=== PATIENT | female | born 1960 | race Caucasian/White ===

== ENCOUNTER 2017-09-09 08:42 | Outpatient (CLI) | payer OTHER ==
--- NOTE | 2017-09-09 09:19 | RAD ---
RIGHT HAND THREE VIEWS: History: 57-year-old female with history of splinters in hand following an injury. FINDINGS: Three views of the right hand demonstrate a small approximately 0.1 cm diameter irregular minimally o paque opacity in the superficial soft tissues of the ulnar side of the right hand at the level of the mid fifth metacarpal. This certainly could represent a small foreign body. No fracture or dislocatio n. No metallic density foreign body. IMPRESSION: Possible small superficial soft tissue foreign body in the ulnar site of soft tissues at the level of the fifth metatarsal. POS: C
== END 2017-09-09 08:43 | disposition home or self-care (01) ==
LOC: RAD-FRANK 08:42
PROVIDERS: ATTEND Nurse Practitioner Family
DX: M79.5 Residual foreign body in soft tissue (principal)

== ENCOUNTER 2020-07-28 21:57 | Inpatient (IN) | payer MEDICAID, SELFPAY ==
[2020-07-28] MEDS ORDERED: Dexamethasone 10 MG/ML VIAL ONE (22:35)
--- NOTE | 2020-07-28 22:40 | RAD ---
RADIOGRAPH CHEST 1 VIEW: DATE: 07/28/2020 TIME: 10:32 PM HISTORY: 60-year-old female with hypoxia COMPARISON: 05/26/2006 FINDINGS: New finding of numerous small patchy infiltrates throughout the bilateral lungs, except for relative sparing of the apices. No cardiomegaly. No pneumothorax. Lateral costophrenic angles are sharp. IMPRESSION: Moderate degree of COVID 19 pneumonia
[2020-07-28 22:52] LABS: #Lymphocytes 1.1 thou/uL (1.20-3.40); #Monocytes 1.1 thou/uL (0.11-0.59); #Neutrophils 6.6 thou/uL (1.40-6.50); %Basophils 0.1 % (0.0-1.0); %Eosinophils 0.1 % (0.0-10.0); %Lymphocytes 12.3 % (21.0-51.0); %Monocytes 12.5 % (0.0-10.0); %Neutrophils 74.9 % (42.0-75.0); Hemoglobin 12.2 g/dL (12.0-16.0); Mean Corpuscular HGB CONC 33.1 g/dL (32.0-36.0); Mean Corpuscular Volume 90.7 fL (78.0-98.0); Mean Platelet Volume 7.5 fL (7.4-10.4); Platelet Count 227 thou/uL (130-400); RBC Distribution Width 11.8 % (11.5-14.5); Red Blood Cell (RBC) Count 4.07 mill/uL (4.20-5.40); White Blood Cell (WBC) Count 8.8 thou/uL (4.8-10.8)
[2020-07-28 23:13] LABS: ALT (SGPT) 20 U/L (8-55); AST (SGOT) 28 U/L (5-34); Albumin 3.4 g/dL (3.4-4.8); Alkaline Phosphatase 81 U/L (40-110); Anion Gap 16 mmol/L (10-20); BUN (Urea Nitrogen) 16 mg/dL (9.8-20.1); Bilirubin, Total 0.4 mg/dL (0.2-1.2); Calc. Creatinine Clearance 0 mL/min (70-130); Calcium 8.1 mg/dL (7.8-10.44); Carbon Dioxide 19 mmol/L (23-31); Chloride 105 mmol/L (98-107); Globulin 3.2 g/dL (2.4-3.5); Glucose 105 mg/dL (80-115); Potassium 3.9 mmol/L (3.5-5.1); Protein, Total 6.6 g/dL (5.8-8.1); Sodium 136 mmol/L (136-145)
[2020-07-28 23:44] LABS: SARS-CoV-2 NAA Rapid Test DETECTED (NotDetected)
--- NOTE | 2020-07-28 23:45 | PDOC.FPRHP ---
- History of Present Illness Chief Complaint: SOB History of Present Illness: Patient presents for evaluation of worsening shortness of breath that she said began over this past week. She states that she tested positive for COVID on Friday, however has had sxs for the past 2-3 weeks of feeling unwell. She states that she was been gradually getting worse every day this week and finds it difficult to do things like walk from her bedroom to her bathroom. Endorse productive cough, but no hemoptysis. States that she has been having diarrhea as well. Denies CP, fever/chills. Does not use oxygen at home. ED Course: dexamethasone 6mg COVID +, Flu - CXR: COVID PNA - Allergies/Adverse Reactions Allergies Allergy/AdvReac Type Severity Reaction Status Date / Time hydrocodone Allergy Unknown Verified 07/29/20 04:36 Penicillins Allergy Verified 07/29/20 03:58 - Home Medications Medication Instructions Recorded Confirmed Type Amlodipine Besylate [amLODIPine 5 mg PO DAILY 07/29/20 07/29/20 History Besylate] Cholecalciferol (Vitamin D3) 4,000 unit PO DAILY 07/29/20 07/29/20 History [Vitamin D3] Cyanocobalamin/Folic Acid [Vitamin 1 tablet PO DAILY 07/29/20 07/29/20 History B12/Folic Acid] Escitalopram Oxalate [Lexapro] 10 mg PO DAILY 07/29/20 07/29/20 History Lactobacillus Rhamnosus R0011 1 cap PO DAILY 07/29/20 07/29/20 History [Probiotic Digestive Care] Losartan Potassium 25 mg PO DAILY 07/29/20 07/29/20 History Multivit-Min/Iron/Folic/Lutein 1 tab PO DAILY 07/29/20 07/29/20 History [Centrum Silver Women] Ondansetron [Zofran ODT] 1 tab PO TID PRN 07/29/20 07/29/20 History Pravastatin Sodium 20 mg PO HS 07/29/20 07/29/20 History Promethazine HCl [Promethazine HCl 5 ml PO Q6HR 07/29/20 07/29/20 History Oral Solution] Zinc 1 tab PO DAILY 07/29/20 07/29/20 History traZODone HCl [Trazodone HCl] 100 mg PO HS 07/29/20 07/29/20 History - History PMHx: -HTN -HLD -reportedly states COPD -Depression/Anxiety PSHx: -none FHx: -dad: prostate cancer Social: -no TAD - Review of Systems General: reports: fatigue Eyes: denies: vision changes ENT: reports: nasal congestion Respiratory: reports: cough, congestion, shortness of breath Cardiovascular: denies: chest pain Gastrointestinal: denies: nausea, vomiting, diarrhea Genitourinary: denies: dysuria, polyuria Skin: denies: rashes, lesions, itching Musculoskeletal: denies: pain, tenderness, stiffness, swelling Neurological: reports: weakness. denies: numbness, syncope - Vital signs BP: 101/62, Pulse: 75, Resp: 20, Temp: 98.9 (Oral), Pain: 4, O2 sat: 96 on (3L Oxygen), Time: 07/28/2020 23:34. - Physical Exam Constitutional: NAD, awake, alert and oriented HEENT: normocephalic and atraumatic, grossly normal vision, grossly normal hearing Neck: supple Heart: RRR, normal S1/S2, no murmurs/rubs/gallops, pulses present Lungs: CTAB, no respiratory distress, good air movement, no rales/rhonchi, no wheezing, no retractions Abdomen: soft, non-tender, bowel sounds present, no masses/distention Musculoskeletal: normal structure Neurological: no focal deficit Skin: other (cap refill > 2) Heme/Lymphatic: no unusual bruising or bleeding, no purpura, no petechia Psychiatric: normal mood and affect, good judgment and insight, intact recent and remote memory FMR H&P: Results - Labs Result Diagrams: 07/28/20 22:44 07/29/20 05:44 Lab results: WBC 8.8 thou/uL (4.8-10.8) 07/28/20 22:44 Hgb 12.2 g/dL (12.0-16.0) 07/28/20 22:44 Hct 37.0 % (36.0-47.0) 07/28/20 22:44 MCV 90.7 fL (78.0-98.0) 07/28/20 22:44 Plt Count 227 thou/uL (130-400) 07/28/20 22:44 Neutrophils % 74.9 % (42.0-75.0) 07/28/20 22:44 Sodium 136 mmol/L (136-145) 07/28/20 22:44 Potassium 3.9 mmol/L (3.5-5.1) 07/28/20 22:44 Chloride 105 mmol/L (98-107) 07/28/20 22:44 Carbon Dioxide 19 mmol/L (23-31) L 07/28/20 22:44 BUN 16 mg/dL (9.8-20.1) 07/28/20 22:44 Creatinine 0.81 mg/dL (0.6-1.1) 07/28/20 22:44 Glucose 105 mg/dL (80-115) 07/28/20 22:44 Calcium 8.1 mg/dL (7.8-10.44) 07/28/20 22:44 Total Bilirubin 0.4 mg/dL (0.2-1.2) 07/28/20 22:44 AST 28 U/L (5-34) 07/28/20 22:44 ALT 20 U/L (8-55) 07/28/20 22:44 Alkaline Phosphatase 81 U/L (40-110) 07/28/20 22:44 Serum Total Protein 6.6 g/dL (5.8-8.1) 07/28/20 22:44 Albumin 3.4 g/dL (3.4-4.8) 07/28/20 22:44 FMR H&P: A/P - Plan ##Acute Hypoxic Respiratory Failure 2/2 COVID PNA -COVID positive, Flu negative -currently on 3L NC -FFP ordered -Remdesivir not started, as patient as been sxs for > 10 days -s/p 1 dose dex in ER, will continue 6mg -Ferritin, LDH, CRP -albuterol prn -mIVF Chronic Conditions: ##HTN ##HLD ##Depression/Anxiety ##COPD, reportedly states that she has been told she has COPD, but denies previous PFTs, no hx of tobacco use -continue home meds CODE: FULL PCP: CC VTE: BID Lovenox DIET: HH Dispo: admitted to medical. monitor resp status. FMR H&P: Upper Level - Plan Date/Time: 07/28/20 4075 Kelby Velasco [email or web address], have evaluated this patient and agree with findings/plan as outlined by manager of international resident. Pertinent changes/additions are listed here. 60yo F presents for SOB. Sx onset July 08, positive COVID test July [facility] at [facility]. Since then has been taking zinc and Sx have worsened. Sx of fevers, chills, sob, cough, diarrhea On exam pt is in mild distress, mucosal membranes mildy dry, Heart has RRR, lungs have inspiratory crackles diffusely, no LE edema, skin wnl A/P Hypoxic respiratory failure 2/2 Covid PNA A- stable on 3L O2. Likely in inflammatory stage of covid. s/p 1 dose dex. 21 days since Sx onset. 7 days since first positive test. Testing positive again today. P- continue O2 prn -Continue dexamethasone 6mg daily -not appropriate for remdezevir 2/2 more than 10 days since Sx onset -convalescent plasma -lovenox 40mg bid -will get baseline LDH, procal, ferritin, CRP and consider repeating at later time to monitor prognosis hypovolemia -slightly dry on admit, will give 1L LR, start mIVF and encourage PO intake HTN, HLD, Anxiety, Depression -home meds CODE: FULL dispo: inpt, expect > 2 midnights Addendum - Attending - Attending Attestation Date/Time: 07/29/20 1051 I personally evaluated the patient and discussed the management with Dr. Mckenzie. I agree with the History, Examination, Assessment and Plan documented above with any addition or exceptions noted below.
[2020-07-29] MEDS ORDERED: Acetaminophen 650 MG Suppository PR PRN (00:20)
[2020-07-29] MEDS ORDERED: Ondansetron PF 4 MG/2 ML Vial IVP PRN (00:20)
[2020-07-29] MEDS ORDERED: Acetaminophen 325 MG TAB PO PRN (00:20)
[2020-07-29] MEDS ORDERED: Ondansetron ODT 4 MG TAB PO PRN (00:20)
[2020-07-29] MEDS ORDERED: Lactated Ringer's 1,000 ML IV SCH ×3 (00:30→02:45)
[2020-07-29] MEDS ORDERED: Pharmacy to Dose REMDESIVIR IVPB PRN ×2 (00:47→01:49)
[2020-07-29 01:41] VITALS: BMI 32.2
[2020-07-29 06:46] LABS: Anion Gap 13 mmol/L (10-20); BUN (Urea Nitrogen) 16 mg/dL (9.8-20.1); Calc. Creatinine Clearance 103 mL/min (70-130); Calcium 8.5 mg/dL (7.8-10.44); Carbon Dioxide 25 mmol/L (23-31); Chloride 105 mmol/L (98-107); Glucose 130 mg/dL (80-115); Potassium 3.9 mmol/L (3.5-5.1); Sodium 139 mmol/L (136-145)
[2020-07-29] MEDS ORDERED: Enoxaparin Sodium 40 MG/0.4 ML SYRINGE SC SCH (09:00)
[2020-07-29] MEDS ORDERED: REMDESIVIR (EUA) 200 MG in Sodium Chloride 0.9% 250 ML 210 ML IV SCH (09:00)
[2020-07-29] MEDS: Dexamethasone 4 MG TAB PO SCH (09:26)
[2020-07-29] MEDS: Enoxaparin Sodium 40 MG/0.4 ML SYRINGE SC SCH (09:27)
[2020-07-29] MEDS: Escitalopram Oxalate 10 mg Tablet PO SCH (09:28)
[2020-07-29] MEDS: Amlodipine 5 MG TAB PO SCH (10:00)
[2020-07-29] MEDS: Losartan 25 MG TAB PO SCH (13:04)
[2020-07-29] MEDS: Benzonatate 100 MG CAP PO PRN (17:11)
[2020-07-29] MEDS: guaiFENesin ER 600 MG TAB PO SCH (20:04)
[2020-07-29] MEDS: Simvastatin 10 MG TAB PO SCH (20:04)
[2020-07-30] MEDS: Dexamethasone 4 MG TAB PO SCH (08:05)
[2020-07-30] MEDS: Escitalopram Oxalate 10 mg Tablet PO SCH (08:06)
[2020-07-30] MEDS: guaiFENesin ER 600 MG TAB PO SCH ×2 (08:06→20:35)
[2020-07-30] MEDS: Amlodipine 5 MG TAB PO SCH (08:07)
[2020-07-30] MEDS: Losartan 25 MG TAB PO SCH (08:07)
[2020-07-30] MEDS: Enoxaparin Sodium 40 MG/0.4 ML SYRINGE SC SCH (08:13)
--- NOTE | 2020-07-30 08:21 | PDOC.FM ---
- Subjective Subjective: Patient feeling better but still very weak. Reports SOB but no CP, N/V. She has not been eating or drinking well 2/2 decreased desire. Stable overnight with no acute events. - Objective MAR Reviewed: Yes Vital Signs & Weight: Vital Signs (12 hours) Temp Pulse Resp BP Pulse Ox 07/30/20 08:07 84 07/30/20 06:01 95 07/30/20 03:35 97.9 F 84 20 131/74 94 L 07/30/20 00:24 97.8 F 71 18 112/72 94 L Weight Admit Weight 82.508 kg Weight 82.508 kg I&O: 07/29/20 07/30/20 07/31/20 06:59 06:59 06:59 Intake Total 0 720 Balance 0 720 Result Diagrams: 07/28/20 22:44 07/29/20 05:44 Phys Exam - Physical Examination Constitutional: NAD Respiratory: no wheezing, no rhonchi, clear to auscultation bilateral Fine crackles, coarse breath sounds BL, diffuse Difficult to examine 2/2 coughing Cardiovascular: RRR, no significant murmur, no rub Gastrointestinal: soft, non-tender, no distention, positive bowel sounds Musculoskeletal: no edema Psychiatric: normal affect, A&O x 3 Dx/Plan - Plan Plan: Acute Hypoxic Respiratory Failure 2/2 COVID PNA -COVID positive, Flu negative -currently on 3L NC -FFP given -Remdesivir not started, as patient as been sxs for > 10 days -s/p 1 dose dex in ER, will continue 6mg QD -albuterol prn -Encouraged PO intake with fluids, will try to hold on IVF at this time Chronic Conditions: HTN- Held home meds 2/2 HoTN, restart home Cozaar today HLD Depression/Anxiety COPD, reportedly states that she has been told she has COPD, but denies previous PFTs, no hx of tobacco use -continue home meds CODE: FULL PCP: [facility] VTE: Lovenox DIET: HH Patient with no insurance, would benefit from home O2 at this point, but has no insurance. Dispo: admitted to medical. monitor resp status. Addendum - Attending - Attending Attestation Date/Time: 07/30/20 1102 I personally evaluated the patient and discussed the management with Dr. Garcia. I agree with the History, Examination, Assessment and Plan documented above with any addition or exceptions noted below. Subjectively feeling better when I saw her this AM. No inc wob. Turned of O2 and decreased to 91%. Continue steroids and will need to likely arrange oxygen as I believe she will drop on walk test.
[2020-07-30] MEDS ORDERED: REMDESIVIR (EUA) 100 MG in Sodium Chloride 0.9% 250 ML 230 ML IV SCH (09:00)
[2020-07-30] MEDS: Benzonatate 100 MG CAP PO PRN ×2 (12:48→20:36)
[2020-07-30] MEDS: Simvastatin 10 MG TAB PO SCH (20:35)
[2020-07-31 07:54] VITALS: TEMP 98
[2020-07-31] MEDS: Dexamethasone 4 MG TAB PO SCH (07:55)
[2020-07-31] MEDS: Escitalopram Oxalate 10 mg Tablet PO SCH (07:55)
[2020-07-31] MEDS: Enoxaparin Sodium 40 MG/0.4 ML SYRINGE SC SCH (07:55)
[2020-07-31] MEDS: guaiFENesin ER 600 MG TAB PO SCH (07:55)
[2020-07-31] MEDS: Benzonatate 100 MG CAP PO PRN (07:56)
[2020-07-31] MEDS: Losartan 25 MG TAB PO SCH (07:56)
[2020-07-31] MEDS: Amlodipine 5 MG TAB PO SCH (08:00)
--- NOTE | 2020-07-31 08:32 | PDOC.FM ---
- Subjective Subjective: Pt resting comfortably in bed. She says she feels well enough to go home. She is ambulating but still requiring oxygen. Nurse reports she failed her walking test with O2 sat of 86%. - Objective Vital Signs & Weight: Vital Signs (12 hours) Temp Pulse Resp BP Pulse Ox 07/31/20 08:00 63 07/31/20 07:54 98.0 F 63 20 149/90 H 94 L 07/31/20 05:33 97.7 F 67 18 149/83 H 90 L 07/31/20 00:15 98.0 F 62 18 137/86 93 L Weight Admit Weight 82.508 kg Weight 82.508 kg I&O: 07/30/20 07/31/20 08/01/20 06:59 06:59 06:59 Intake Total 720 240 Balance 720 240 Result Diagrams: 07/28/20 22:44 07/29/20 05:44 Phys Exam - Physical Examination Constitutional: NAD Neck: supple, full ROM Respiratory: no wheezing, clear to auscultation bilateral Cardiovascular: RRR, no significant murmur Gastrointestinal: soft, non-tender Musculoskeletal: no edema Neurological: non-focal Psychiatric: normal affect, A&O x 3 Dx/Plan - Plan Plan: Acute Hypoxic Respiratory Failure 2/2 COVID PNA -COVID positive, Flu negative -currently on 3L NC. -FFP given -Remdesivir not started, as patient as been sxs for > 10 days -s/p 1 dose dex in ER, will continue 6mg QD for total of 10 days -albuterol prn -Encouraged PO intake with fluids, will try to hold on IVF at this time -Nurse performed walking test and pt's O2 sat dropped to 86%. Will require home O2. -CM consulted for help with home O2. Patient uninsured and is concerned about cost. Chronic Conditions: HTN HLD Depression/Anxiety -continue home meds CODE: FULL PCP: [facility] VTE: Lovenox DIET: HH Patient with no insurance, would benefit from home O2 at this point, but has no insurance. Dispo: Stable for discharge pending home O2 set up per CM. Addendum - Attending - Attending Attestation Date/Time: 07/31/20 3907 I discussed the management with Dr. Araya. I agree with the History, Examination, Assessment and Plan documented above with any addition or exceptions noted below.
[2020-07-31 11:57] VITALS: BP 123/80
[2020-07-31] MEDS ORDERED: Enoxaparin Sodium 40 MG/0.4 ML SYRINGE SC SCH (21:00)
[2020-08-01] MEDS ORDERED: Enoxaparin Sodium 40 MG/0.4 ML SYRINGE SC SCH (09:00)
--- NOTE | 2020-08-01 21:01 | DIS ---
DATE OF ADMISSION: 07/29/2020 DATE OF DISCHARGE: 07/31/2020 RESIDENT: Sarah Araya, PGY-1 ADMITTING AND DISCHARGE ATTENDING: Dr. Hai Brown. CONSULTS: Case Management. PROCEDURES: None. PRIMARY DIAGNOSIS: Acute hypoxic respiratory failure secondary to COVID pneumonia. SECONDARY DIAGNOSES: 1. Hypertension. 2. Hyperlipidemia. 3. Depression. 4. Anxiety. DISCHARGE MEDICATIONS: 1. Mucinex 600 mg p.o. b.i.d. 2. Dexamethasone 6 mg p.o. daily for 7 days. 3. Vitamin D3 daily. 4. Vitamin B12, folic acid 1 tablet daily. 5. Lexapro 10 mg daily. 6. Probiotic 1 capsule daily. 7. Centrum Silver Women's multivitamin 1 tablet daily. 8. Pravastatin 20 mg daily. 9. Promethazine p.o. q.6 hours. 10. Trazodone 100 mg at bedtime. 11. Zinc 50 mg 1 tablet daily. HISTORY OF PRESENT ILLNESS: The patient is a 60-year-old female, who presented for worsening shortness of breath for the past week. Tested COVID positive on 07/28/2020, but had symptoms for 2 to 3 weeks. She was experiencing weakness and was having difficulty doing activities of daily living. She admits to productive cough and diarrhea. Denies fever or chills and had not been using any oxygen at home. In the ED, she was started on dexamethasone 6 mg, which was continued throughout her stay. Her chest x-ray showed a pattern consistent with COVID pneumonia. She was started on 3 L nasal cannula. She was not a candidate for remdesivir or convalescent plasma due to length of her symptoms. Labs; white count 8.8, hemoglobin 12.2, platelets 227, lymphocytes 12.3. The LDH was 294. CRP was 13.23. Ferritin was 411. The patient reported that she felt better and felt comfortable being discharged home. Nurse performed a home oxygen walking test and patient desatted into the 80s, so was requiring 2 L nasal cannula at that time. Case Management was consulted, who was able to arrange for the patient to get outpatient home oxygen. The patient felt stable to be discharged and was discharged home with home oxygen and rx to finish out a 10-day course of dexamethasone. DISPOSITION: Stable. DISCHARGE INSTRUCTIONS: 1. Location: Home. 2. Diet: Regular. 3. Activity: As tolerated. 4. Followup: Follow up with PCP for help evaluating oxygen need going forward Job ID: [id number]
== END 2020-07-31 14:56 | disposition home or self-care (01) | DRG 177 ==
LOC: ERS 21:57 → T4-B 07-29 00:05
PROVIDERS: ADMIT Emergency Medicine; ATTEND Family Medicine
PROC: XW13325 Transfusion of Convalescent Plasma (Nonautologous) into Peripheral Vein, Percutaneous Approach, New Technology Group 5 (ICD-10-PCS; principal; 2020-07-29)
PROC: 8E0ZXY6 Isolation (ICD-10-PCS; 2020-07-29)
DX: U07.1 COVID-19 (principal); J12.82 Pneumonia due to coronavirus disease 2019; J96.01 Acute respiratory failure with hypoxia; F33.9 Major depressive disorder, recurrent, unspecified; J44.0 Chronic obstructive pulmonary disease with (acute) lower respiratory infection; I10 Essential (primary) hypertension; E78.5 Hyperlipidemia, unspecified; F41.9 Anxiety disorder, unspecified; E86.1 Hypovolemia; Z88.0 Allergy status to penicillin
CPT/HCPCS: 0240U; 36415; 36430; 71045; 80048; 80053; 82728; 83615; 84145; 85025; 86140; 86850; 86900; 86901; 93005; 96374; J1100; J1650; J8540; P9017